=== PATIENT | male | born 1985 | race Caucasian/White ===

== ENCOUNTER 2019-11-03 20:22 | Emergency (ER) | payer OTHER ==
[~2019-11-03] VITALS: Ht 175.3 cm; Wt 113.4 kg
[~2019-11-03 20:22] MED LIST: OMEP20CA15 PO; SIMV20TA2 PO
[2019-11-03 20:24] VITALS: BP 152/72
== END 2019-11-03 22:51 | disposition home or self-care (01) ==
LOC: ER 20:22
DX: R09.89 Other specified symptoms and signs involving the circulatory and respiratory systems (principal); M54.2 Cervicalgia; K21.9 Gastro-esophageal reflux disease without esophagitis; Z79.899 Other long term (current) drug therapy
CPT/HCPCS: 70490-TC; 71250-TC

== ENCOUNTER 2021-11-11 10:35 | Emergency (ER) | payer OTHER ==
[~2021-11-11] VITALS: Ht 175.3 cm; Wt 95.3 kg
[2021-11-11 10:55] VITALS: BP 109/61
[2021-11-11] MEDS ORDERED: KETOROLAC TROMETHAMINE INJ 30 MG/ML VIAL IM ONE (11:00)
[2021-11-11] MEDS ORDERED: KETOROLAC TROMETHAMINE 15 MG/ML VIAL ONE (11:13)
[2021-11-11] MEDS ORDERED: IBUP-1955 PO (12:17)
--- NOTE | 2021-11-11 12:24 | NUR ---
Patient discharged to home in stable condition. Written and verbal after care instructions given. Patient verbalizes understanding of instruction.
== END 2021-11-11 12:25 | disposition home or self-care (01) ==
LOC: ER 10:40
DX: S86.911A Strain of unspecified muscle(s) and tendon(s) at lower leg level, right leg, initial encounter (principal); R55 Syncope and collapse; E78.5 Hyperlipidemia, unspecified; K21.9 Gastro-esophageal reflux disease without esophagitis; Z79.899 Other long term (current) drug therapy; V00.131A Fall from skateboard, initial encounter; Y93.51 Activity, roller skating (inline) and skateboarding; Y92.331 Roller skating rink as the place of occurrence of the external cause; Y99.8 Other external cause status
CPT/HCPCS: 99283; 96372; 93005; J1885

== ENCOUNTER 2022-06-11 03:06 | Emergency (ER) | payer OTHER ==
[~2022-06-11] VITALS: Ht 152.4 cm; Wt 95.3 kg
[~2022-06-11 03:06] MED LIST changes: +IBUP-1955 PO
--- NOTE | 2022-06-11 04:50 | NUR ---
BIBS FOR C/O DIZZINESS X 1 WEEK AND HEADACHE SINCE LAST NIGHT. PATIENT IS AAOX4. AMBULATORY. ABLE TO MAKE NEEDS KNOWN. PLACED COMFORTABLY IN BED. VITALS CHECKED. PAIN SCALE OF 5/10.
--- NOTE | 2022-06-11 05:28 | NUR ---
EMT AT PT'S BEDSIDE FOR EKG
[2022-06-11 05:55] LABS: BASOPHILS # (AUTO) 0.1 K/uL (0.0-0.2); BASOPHILS % (AUTO) 1.6 % (0.0-2.0); EOSINOPHILS % (AUTO) 3.9 % (0.0-6.0); HEMATOCRIT 52 % (39-51); HEMOGLOBIN 17.2 g/dL (13.5-17.5); LYMPHOCYTES # (AUTO) 1.5 K/uL (0.8-4.8); LYMPHOCYTES % (AUTO) 19.7 % (20.0-44.0); MEAN CORPUSCULAR HGB CONC 33 g/dl (31.0-36.0); MEAN CORPUSCULAR VOLUME 91 fL (80-96); MONOCYTES # (AUTO) 0.7 K/uL (0.1-1.30); MONOCYTES % (AUTO) 9.3 % (2.0-12.0); NEUTROPHILS # (AUTO) 4.9 K/uL (1.8-8.9); NEUTROPHILS % (AUTO) 65.5 % (43.0-81.0); PLATELET COUNT (AUTO) 293 K/uL (150-450); RED BLOOD CELL COUNT(AUTO) 5.72 MIL/uL (4.5-6.0); WHITE BLOOD COUNT (AUTO) 7.6 K/uL (4.3-11.0)
[2022-06-11 06:15] LABS: ALBUMIN 3.8 g/dL (3.4-5.0); CALCIUM, SERUM 9.2 mg/dL (8.5-10.1); CREATININE 1.2 mg/dL (0.6-1.3); MAGNESIUM 2.3 mg/dL (1.8-2.4); POTASSIUM 4.7 mmol/L (3.5-5.1); TOTAL PROTEIN, SERUM 7.8 g/dL (6.4-8.2)
[2022-06-11] MEDS ORDERED: ACETAMINOPHEN ES 500 MG TABLET ONE (07:20)
[2022-06-11] MEDS ORDERED: METOCLOPRAMIDE HCL 10 MG/2 ML VIAL ONE (07:20)
[2022-06-11] MEDS ORDERED: diphenhydrAMINE HCL 50 MG/ML VIAL ONE (07:20)
--- NOTE | 2022-06-11 07:26 | NUR ---
RAC #18G S/L; PATENT AND INTACT.
--- NOTE | 2022-06-11 07:27 | NUR ---
IV CHERRIE G18 ON RIGHT AC.
[2022-06-11] MEDS ORDERED: ACETAMINOPHEN ES 500 MG TABLET PO ONE (07:30)
[2022-06-11] MEDS ORDERED: METOCLOPRAMIDE HCL 10 MG/2 ML VIAL IV ONE (07:30)
[2022-06-11] MEDS ORDERED: diphenhydrAMINE HCL 50 MG/ML VIAL IV ONE (07:30)
[2022-06-11] MEDS ORDERED: IV NS 0.9% 1,000 ML BAG IV ONE (07:30)
--- NOTE | 2022-06-11 07:31 | NUR ---
REPORT GIVEN TO [facility]
[2022-06-11 07:54] VITALS: BP 124/68
--- NOTE | 2022-06-11 07:55 | NUR ---
Patient discharged to home in stable condition. Written and verbal after care instructions given. Patient verbalizes understanding of instruction. IV removed. Catheter intact and site benign. Pressure and 4x4 applied to site. No bleeding noted.
== END 2022-06-11 07:55 | disposition home or self-care (01) ==
LOC: ER 03:08
DX: R55 Syncope and collapse (principal); R51.9 Headache, unspecified; E78.5 Hyperlipidemia, unspecified; K21.9 Gastro-esophageal reflux disease without esophagitis; F32.A Depression, unspecified; Z79.899 Other long term (current) drug therapy
CPT/HCPCS: 99284; 96374; 96361; 96375; 93005; 85025; 83735; 36415; 80053; 84484; 82962; J1200; J2765; J7030